=== PATIENT | female | born 1960 | race Two or more races ===

== ENCOUNTER 2019-10-14 17:13 | Emergency (ER) | payer OTHER ==
[~2019-10-14] VITALS: Ht 154.9 cm; Wt 59.1 kg
[2019-10-14] MEDS ORDERED: BENA5TAB26 PO (17:17)
[2019-10-14 19:26] VITALS: BP 153/82
== END 2019-10-14 19:40 | disposition home or self-care (01) ==
LOC: EMS 17:13
DX: S52.591A Other fractures of lower end of right radius, initial encounter for closed fracture (principal); S52.614A Nondisplaced fracture of right ulna styloid process, initial encounter for closed fracture; I10 Essential (primary) hypertension; W19.XXXA Unspecified fall, initial encounter; Y93.89 Activity, other specified; Y92.89 Other specified places as the place of occurrence of the external cause; Y99.8 Other external cause status